=== PATIENT | male | born 1985 | race Hispanic/Latino ===

== ENCOUNTER → 2017-12-22 | Day surgery (SDC) | payer OTHER ==
[~2017-12-22] MED LIST: FENTANYL CITRATE/PF 100MCG/2 ML INJ ONE; LIDOCAINE HCL 2% LOCAL INJ 5 ML SDV VIAL INJ ONE; MIDAZOLAM HCL 2 MG/2 ML VIAL ONE; NEXIUM40 MG PO; PROPOFOL IV EMULSION 10 MG/ML 50 ML VIAL ONE
--- NOTE | 2017-12-22 11:38 | Operative Report ---
DATE OF PROCEDURE: December 22, 2017 PROCEDURE PERFORMED: Esophagogastroduodenoscopy with esophageal dilatation and biopsies. INDICATIONS FOR EGD: Dysphagia to solids, acid reflux and nausea. MEDICATION: Patient was done under MAC. Please see anesthesiologist's note. PROCEDURE: With the patient in the left lateral decubitus position, the flexible fiberoptic Olympus gastroscope was introduced into the esophagus under direct visualization without any difficulty. There was some patchy erythema noted in the distal esophagus. Minute tongues of velvety red mucosa were noted to extend proximally from the GE junction, and biopsies were obtained to rule out Menendez's. The scope was then advanced with ease into the stomach, traversing a small sliding hiatal hernia. There was a mild stricture noted at the GE junction that was dilated to size 52-[place]. The mucosa overlying the antrum and the body revealed some diffuse erythema and low-grade to moderate edema, and biopsies were obtained and sent to stain for H. pylori. Pylorus appeared to be of normal contour and shape. It was intubated with ease, and the scope was advanced all the way to the 2nd portion of the duodenum. The duodenal folds of the proximal 2nd portion appeared somewhat flattened, and biopsies were obtained to rule out sprue. Mucosa overlying the duodenal bulb appeared to be within normal limits. The scope was then withdrawn back into the stomach and retroflexed. Mucosa overlying the fundus and the cardia appeared to be within normal limits. The scope was then straightened out. It was subsequently withdrawn. Patient tolerated the procedure well. IMPRESSION 1. Distal esophagitis, mild. 2. Rule out Menendez's esophagus. 3. Esophageal stricture at gastroesophageal junction dilated to size 52-[place]. 4. Small sliding hiatal hernia. 5. Gastritis, biopsied. Biopsies sent to stain for H. pylori. 6. Rule out sprue. PLAN: Follow up histology. Increase Nexium to 40 mg 1 p.o. a.c. b.i.d. Job#: [id number]
== END | disposition home or self-care (01) ==
LOC: OR 08:30
PROVIDERS: ATTEND Internal Medicine Gastroenterology
DX: K22.2 Esophageal obstruction (principal); K21.0 Gastro-esophageal reflux disease with esophagitis; K44.9 Diaphragmatic hernia without obstruction or gangrene; K29.50 Unspecified chronic gastritis without bleeding; B96.81 Helicobacter pylori [H. pylori] as the cause of diseases classified elsewhere
CPT/HCPCS: 43239; 43248; J2001; J2250; 43450